=== PATIENT | female | born 1980 | race Caucasian/White ===

== ENCOUNTER 2016-10-21 12:55 | Emergency (ER) | payer OTHER ==
[~2016-10-21] VITALS: Ht 175.3 cm; Wt 140.0 kg
[~2016-10-21 12:55] MED LIST: ANTIVERT25 MG PO; ATARAX,VISTARIL50 MG PO; ATIVAN0.5 M1 PO; AZITHROMYCIN500 M1 PO; BACTRIM,SEPT1 TABLET PO; BENADRYL25 MG PO; BENTYL20 MG PO; CIPRO500 MG PO; CLINDAMYCIN HC150 MG PO; COLACE100 MG PO; DEPAKOTE ER (E500 MG PO; DEPAKOTE ER500 MG PO; DEPAKOTE500 MG PO; DIAMOX250 MG PO; DILAUDID2 MG PO; FIORICET,ESG1 TABLET PO; FLAGYL500 MG PO; FLEXERIL10 MG PO; FLOMAX0.4 MG PO; GEODON60 MG PO; HYDROCODON-ACE1 EAC7 PO; IMITREX100 MG PO; LEVAQUIN500 MG PO; LEXAPRO20 MG PO; LITHIUM CARBON300 MG PO; LORAZEPAM0.5 MG PO; MOBIC7.5 MG PO; MORPHINE SULFAT15 M1 PO; NIX 5% CREAM60 GM TP; NORCO 5/3251 TABLET PO; OMEPRAZOLE20 MG PO; OXYBUTYNIN CHLOR5 MG PO; PERCOCET 5/31 TABLET PO; PHENERGAN25 MG PR; PREDNISONE20 MG PO; PRIMIDONE50 MG PO; PYRIDIUM200 MG PO; RAPAFLO8 MG PO; REGLAN10 MG PO; SAVELLA50 MG PO; TAMSULOSIN HCL0.4 MG PO; THORAZINE50 MG PO; TOPAMAX25 MG PO; TORADOL10 MG PO; VALIUM5 MG PO; ZOFRAN ODT4 MG PO; ZOFRAN ODT8 MG PO; ZOMIG5 MG PO; [UNRECOGNIZED DRUG - REMARK]; [UNRECOGNIZED DRUG - REMARK]
[2016-10-21 13:39] LABS: ADD MIUA? YES; BILIRUBIN NEGATIVE; BLOOD NEGATIVE; COLOR YELLOW ((YELLOW)); GLUCOSE (STRIP) NEGATIVE; KETONES NEGATIVE; LEUKOCYTES NEGATIVE; NITRITE NEGATIVE; PH, URINE 6.5 (5-8); PROTEIN (STRIP) 30; SPECIFIC GRAVITY 1.028 (1.000-1.030)
[2016-10-21 14:02] LABS: EPITHELIAL CELLS 1+; RED BLOOD CELLS RARE /HPF (0-5); WHITE BLOOD CELLS 0-5 /HPF (0-5)
[2016-10-21 14:03] LABS: BACTERIA 1+; CASTS NONE SEEN /LPF; CRYSTALS NONE SEEN; MUCUS TRACE; UCUL ADDED? NO
[2016-10-21] MEDS ORDERED: DILAUDID4 MG PO (15:37)
[2016-10-21 16:15] LABS: HEMATOCRIT 41.9 % (36.0-46.0); MCH 28.7 PG (29.0-34.0); MCHC 33.7 G/DL (30.0-36.0); MCV 85.3 FL (83-99); MEAN PLAT.VOLUME 10.2 uM^3 (9.5-12.4); PLATELET COUNT 287 K/uL (156-360); RBC DIS.WIDTH-CV 14.7 % (11.8-14.6); RBC DIS.WIDTH-SD 44.3 % (39-53); RED BLOOD COUNT 4.91 M/uL (3.80-5.20); WHITE BLOOD COUNT 11.3 K/uL (4.1-10.2)
[2016-10-21 16:24] LABS: CHLORIDE 106 mEq/L (99-109); SODIUM 137 mEq/L (136-147)
[2016-10-21 16:26] LABS: GLUCOSE 100 mg/dL (70-99)
[2016-10-21 16:27] LABS: ANION GAP 11 MEQ/L (2-14)
[2016-10-21 16:28] LABS: TOTAL BILIRUBIN 0.2 mg/dL (0.0-1.0)
[2016-10-21 16:29] LABS: ALKALINE PHOSPHATASE 72 IU/L (3-129)
[2016-10-21 16:30] LABS: GFR ESTIMATE (CALCULATED) > 59 mL/min/
[2016-10-21 16:31] LABS: UREA NITROGEN (BUN) 12 mg/dL (9-23)
[2016-10-21 16:40] LABS: QUANTITATIVE HCG < 4.0 MIU/ML
[2016-10-21] MEDS ORDERED: ZOFRAN ODT4 MG PO (18:12)
[2016-10-21 18:30] VITALS: BP 140/86
== END 2016-10-21 18:32 | disposition home or self-care (01) ==
LOC: EME 12:55
DX: R11.2 Nausea with vomiting, unspecified (principal); N20.0 Calculus of kidney; R10.9 Unspecified abdominal pain; E66.01 Morbid (severe) obesity due to excess calories; F11.90 Opioid use, unspecified, uncomplicated; Z88.6 Allergy status to analgesic agent; F17.200 Nicotine dependence, unspecified, uncomplicated; Z90.49 Acquired absence of other specified parts of digestive tract
CPT/HCPCS: 74176; 80053; 81003; 84702; 85027; 99281; 99283; J2550; J3010

== ENCOUNTER 2016-10-23 16:42 | Emergency (ER) | payer OTHER ==
[~2016-10-23] VITALS: Ht 175.3 cm; Wt 139.9 kg
[~2016-10-23 16:42] MED LIST changes: +DILAUDID4 MG PO
[2016-10-23 18:33] LABS: HEMATOCRIT 43.5 % (36.0-46.0); MCH 28.8 PG (29.0-34.0); MCHC 33.6 G/DL (30.0-36.0); MCV 85.8 FL (83-99); PLATELET COUNT 285 K/uL (156-360); RBC DIS.WIDTH-CV 14.9 % (11.8-14.6); RBC DIS.WIDTH-SD 46.1 % (39-53); RED BLOOD COUNT 5.07 M/uL (3.80-5.20)
[2016-10-23 18:34] LABS: WHITE BLOOD COUNT 14.8 K/uL (4.1-10.2)
[2016-10-23 18:36] LABS: CHLORIDE 107 mEq/L (99-109); SODIUM 137 mEq/L (136-147)
[2016-10-23 18:38] LABS: GLUCOSE 102 mg/dL (70-99)
[2016-10-23 18:40] LABS: ANION GAP 9 MEQ/L (2-14)
[2016-10-23 18:41] LABS: TOTAL BILIRUBIN 0.3 mg/dL (0.0-1.0)
[2016-10-23 18:42] LABS: ALKALINE PHOSPHATASE 73 IU/L (3-129); GFR ESTIMATE (CALCULATED) > 59 mL/min/
[2016-10-23 18:43] LABS: UREA NITROGEN (BUN) 11 mg/dL (9-23)
[2016-10-23 19:37] LABS: ADD MIUA? YES; BILIRUBIN NEGATIVE; BLOOD LARGE; COLOR YELLOW ((YELLOW)); GLUCOSE (STRIP) NEGATIVE; KETONES NEGATIVE; LEUKOCYTES NEGATIVE; NITRITE NEGATIVE; PROTEIN (STRIP) 30; UROBILINOGEN 0.2 MG/DL (0.2-1.0)
[2016-10-23 19:46] LABS: BACTERIA NONE SEEN; CASTS NONE SEEN /LPF; CRYSTALS NONE SEEN; EPITHELIAL CELLS 1+; MUCUS NONE SEEN; PATHOLOGICAL CAST NONE SEEN; RED BLOOD CELLS 0-5 /HPF (0-5); SMALL ROUND CELL NONE SEEN; UCUL ADDED? NO; WHITE BLOOD CELLS 0-5 /HPF (0-5); YEAST-LIKE CELL NONE SEEN
[2016-10-23 20:27] VITALS: BP 126/78
== END 2016-10-23 20:35 | disposition home or self-care (01) ==
LOC: EME 16:42 → RME 16:42
PROVIDERS: Nurse Practitioner Family
DX: N20.0 Calculus of kidney (principal); J45.909 Unspecified asthma, uncomplicated; G89.29 Other chronic pain; M79.7 Fibromyalgia; Z87.442 Personal history of urinary calculi; F17.200 Nicotine dependence, unspecified, uncomplicated
CPT/HCPCS: 74000; 74177; 80053; 81003; 85027; 99281; 99285; J3010

== ENCOUNTER 2016-10-30 07:58 | Emergency (ER) | payer OTHER ==
[~2016-10-30] VITALS: Ht 175.3 cm; Wt 139.2 kg
[2016-10-30 08:28] LABS: EOSINOPHIL (%) 0.9 % (0-5); EOSINOPHIL COUNT 0.1 K/uL (0-0.3); IMMATURE GRANULOCYTE (%) 0.3 % (0.0-0.7); IMMATURE GRANULOCYTE COUNT 0.3 K/uL; LYMPHOCYTE COUNT 2.7 K/uL (1.0-2.8); MCHC 33.6 G/DL (30.0-36.0); MCV 86.4 FL (83-99); MEAN PLAT.VOLUME 9.8 uM^3 (9.5-12.4); MONOCYTE (%) 9.9 % (3-12); MONOCYTE COUNT 1.1 K/uL (0-0.8); NEUTROPHIL (%) 63.8 % (45-76); PLATELET COUNT 263 K/uL (156-360); RBC DIS.WIDTH-CV 14.8 % (11.8-14.6); RBC DIS.WIDTH-SD 45.8 % (39-53); RED BLOOD COUNT 4.86 M/uL (3.80-5.20); WHITE BLOOD COUNT 10.9 K/uL (4.1-10.2)
[2016-10-30 08:50] LABS: ADD MIUA? YES; BILIRUBIN NEGATIVE; BLOOD NEGATIVE; COLOR YELLOW ((YELLOW)); GLUCOSE (STRIP) NEGATIVE; KETONES NEGATIVE; LEUKOCYTES NEGATIVE; NITRITE NEGATIVE; PH, URINE 5.5 (5-8); PROTEIN (STRIP) 30; SPECIFIC GRAVITY 1.031 (1.000-1.030); UROBILINOGEN 0.2 MG/DL (0.2-1.0)
[2016-10-30 08:55] LABS: CHLORIDE 102 mEq/L (99-109); POTASSIUM 3.8 mEq/L (3.7-5.4); SODIUM 135 mEq/L (136-147)
[2016-10-30 08:57] LABS: GLUCOSE 112 mg/dL (70-99)
[2016-10-30 08:58] LABS: ANION GAP 13 MEQ/L (2-14)
[2016-10-30 09:00] LABS: ALKALINE PHOSPHATASE 66 IU/L (3-129)
[2016-10-30 09:01] LABS: GFR ESTIMATE (CALCULATED) > 59 mL/min/
[2016-10-30 09:02] LABS: TOTAL BILIRUBIN 0.5 mg/dL (0.0-1.0); UREA NITROGEN (BUN) 9 mg/dL (9-23)
[2016-10-30 09:04] LABS: LIPASE 41 U/L (1.0-51.0)
[2016-10-30 09:27] LABS: EPITHELIAL CELLS 1+; MUCUS 2+; RED BLOOD CELLS NONE SEEN /HPF (0-5); WHITE BLOOD CELLS RARE /HPF (0-5)
[2016-10-30 09:28] LABS: BACTERIA NONE SEEN; CASTS NONE SEEN /LPF
[2016-10-30 09:51] LABS: CRYSTALS NONE SEEN
[2016-10-30 10:30] VITALS: BP 107/49
[2016-10-30] MEDS ORDERED: ZOFRAN ODT4 MG PO (11:13)
[2016-10-30] MEDS ORDERED: BENTYL20 MG PO (11:13)
== END 2016-10-30 11:32 | disposition home or self-care (01) ==
LOC: EME 07:58
PROVIDERS: Emergency Medicine
DX: R10.9 Unspecified abdominal pain (principal); R11.10 Vomiting, unspecified; R19.7 Diarrhea, unspecified; J45.909 Unspecified asthma, uncomplicated; F17.200 Nicotine dependence, unspecified, uncomplicated; Z88.0 Allergy status to penicillin; Z88.6 Allergy status to analgesic agent
CPT/HCPCS: 80053; 81003; 83690; 85025; 87493; 99281; 99285; J1885; J2270; J2405; J2765; J7030

== ENCOUNTER 2016-12-17 13:55 | Emergency (ER) | payer OTHER ==
[~2016-12-17] VITALS: Ht 177.8 cm; Wt 138.1 kg
[2016-12-17 14:26] LABS: HEMATOCRIT 45.9 % (36.0-46.0); MCH 28.3 PG (29.0-34.0); MCHC 32.5 G/DL (30.0-36.0); MCV 87.3 FL (83-99); MEAN PLAT.VOLUME 9.7 uM^3 (9.5-12.4); PLATELET COUNT 318 K/uL (156-360); RBC DIS.WIDTH-CV 13.5 % (11.8-14.6); RBC DIS.WIDTH-SD 43.5 % (39-53); RED BLOOD COUNT 5.26 M/uL (3.80-5.20); WHITE BLOOD COUNT 11.5 K/uL (4.1-10.2)
[2016-12-17 14:40] LABS: CHLORIDE 105 mEq/L (99-109); POTASSIUM 4.3 mEq/L (3.7-5.4); SODIUM 139 mEq/L (136-147)
[2016-12-17 14:42] LABS: GLUCOSE 90 mg/dL (70-99)
[2016-12-17 14:43] LABS: ANION GAP 11 MEQ/L (2-14)
[2016-12-17 14:46] LABS: GFR ESTIMATE (CALCULATED) > 59 mL/min/
[2016-12-17 14:47] LABS: TROP-I INTERPRETATION NEGATIVE; TROPONIN-I < 0.01 ng/mL (0.0-0.30); UREA NITROGEN (BUN) 11 mg/dL (9-23)
[2016-12-17 16:49] LABS: TROP-I INTERPRETATION NEGATIVE; TROPONIN-I < 0.01 ng/mL (0.0-0.30)
[2016-12-17] MEDS ORDERED: VENTOLIN HFA18 GM IH (17:09)
[2016-12-17] MEDS ORDERED: ZITHROMAX Z-PA250 MG PO (17:09)
[2016-12-17] MEDS ORDERED: PERCOCET 5/31 TABLET PO (17:09)
[2016-12-17 17:52] VITALS: BP 128/71
== END 2016-12-17 17:52 | disposition home or self-care (01) ==
LOC: EME 13:55
PROVIDERS: Emergency Medicine
DX: R07.9 Chest pain, unspecified (principal); J40 Bronchitis, not specified as acute or chronic; J45.909 Unspecified asthma, uncomplicated; G89.29 Other chronic pain; M79.7 Fibromyalgia; Z87.442 Personal history of urinary calculi; Z98.2 Presence of cerebrospinal fluid drainage device; F17.200 Nicotine dependence, unspecified, uncomplicated
CPT/HCPCS: 71275; 80048; 83880; 84484; 85027; 93005; 99281; 99285; J1885

== ENCOUNTER 2017-01-27 09:59 | Emergency (ER) | payer OTHER ==
[~2017-01-27] VITALS: Ht 177.8 cm; Wt 141.8 kg
[~2017-01-27 09:59] MED LIST changes: +VENTOLIN HFA18 GM IH; +ZITHROMAX Z-PA250 MG PO
[2017-01-27 10:53] LABS: HEMATOCRIT 45.6 % (36.0-46.0); MCH 28.6 PG (29.0-34.0); MCHC 32.5 G/DL (30.0-36.0); MEAN PLAT.VOLUME 9.7 uM^3 (9.5-12.4); PLATELET COUNT 301 K/uL (156-360); RBC DIS.WIDTH-CV 13.4 % (11.8-14.6); RBC DIS.WIDTH-SD 43.5 % (39-53); RED BLOOD COUNT 5.18 M/uL (3.80-5.20); WHITE BLOOD COUNT 11.5 K/uL (4.1-10.2)
[2017-01-27 11:08] LABS: CHLORIDE 106 mEq/L (99-109); POTASSIUM 3.7 mEq/L (3.7-5.4); SODIUM 139 mEq/L (136-147)
[2017-01-27 11:10] LABS: GLUCOSE 136 mg/dL (70-99)
[2017-01-27 11:11] LABS: ANION GAP 12 MEQ/L (2-14)
[2017-01-27 11:14] LABS: GFR ESTIMATE (CALCULATED) > 59 mL/min/; UREA NITROGEN (BUN) 12 mg/dL (9-23)
[2017-01-27 11:19] LABS: TROP-I INTERPRETATION NEGATIVE; TROPONIN-I < 0.01 ng/mL (0.0-0.30)
[2017-01-27 13:14] LABS: TROP-I INTERPRETATION NEGATIVE; TROPONIN-I < 0.01 ng/mL (0.0-0.30)
[2017-01-27 13:47] LABS: D-DIMER ELISA 0.48 mg/L FEU (< 0.57)
[2017-01-27 14:44] VITALS: BP 119/71
== END 2017-01-27 14:45 | disposition home or self-care (01) ==
LOC: EME 09:59
PROVIDERS: Physician Assistant Medical
DX: G43.909 Migraine, unspecified, not intractable, without status migrainosus (principal); R07.9 Chest pain, unspecified; R42 Dizziness and giddiness; R11.2 Nausea with vomiting, unspecified; R19.7 Diarrhea, unspecified; R06.00 Dyspnea, unspecified; M79.604 Pain in right leg; M79.605 Pain in left leg; G89.29 Other chronic pain; R10.9 Unspecified abdominal pain; Z98.2 Presence of cerebrospinal fluid drainage device; Z87.442 Personal history of urinary calculi; Z90.49 Acquired absence of other specified parts of digestive tract; F17.200 Nicotine dependence, unspecified, uncomplicated
CPT/HCPCS: 71020; 74000; 80048; 84484; 85027; 85379; 93005; 99281; 99285; J1200; J1885; J2765; J7030

== ENCOUNTER 2017-02-20 18:27 | Emergency (ER) | payer OTHER ==
[~2017-02-20] VITALS: Ht 175.3 cm; Wt 143.6 kg
[2017-02-20 19:27] LABS: ADD MIUA? YES; BILIRUBIN NEGATIVE; BLOOD NEGATIVE; COLOR YELLOW ((YELLOW)); GLUCOSE (STRIP) NEGATIVE; KETONES NEGATIVE; LEUKOCYTES NEGATIVE; NITRITE NEGATIVE; PROTEIN (STRIP) 100; SPECIFIC GRAVITY 1.033 (1.000-1.030)
[2017-02-20 19:35] LABS: BACTERIA NONE SEEN /HPF; EPITHELIAL CELLS RARE /HPF; MUCUS 1+ /LPF; RED BLOOD CELLS NONE SEEN /HPF (0-5); UCUL ADDED? NO; WHITE BLOOD CELLS NONE SEEN /HPF (0-5)
[2017-02-20 20:01] LABS: HEMATOCRIT 45.7 % (36.0-46.0); MCH 28.4 PG (29.0-34.0); MCHC 33.3 G/DL (30.0-36.0); MCV 85.4 FL (83-99); MEAN PLAT.VOLUME 9.8 uM^3 (9.5-12.4); PLATELET COUNT 300 K/uL (156-360); RBC DIS.WIDTH-CV 13.2 % (11.8-14.6); RBC DIS.WIDTH-SD 41.3 % (39-53); RED BLOOD COUNT 5.35 M/uL (3.80-5.20); WHITE BLOOD COUNT 12.5 K/uL (4.1-10.2)
[2017-02-20 20:16] LABS: CHLORIDE 105 mEq/L (99-109); POTASSIUM 3.7 mEq/L (3.7-5.4); SODIUM 137 mEq/L (136-147)
[2017-02-20 20:18] LABS: GLUCOSE 105 mg/dL (70-99)
[2017-02-20 20:19] LABS: ANION GAP 10 MEQ/L (2-14)
[2017-02-20 20:20] LABS: TOTAL BILIRUBIN 0.5 mg/dL (0.0-1.0)
[2017-02-20 20:21] LABS: ALKALINE PHOSPHATASE 83 IU/L (3-129)
[2017-02-20 20:22] LABS: GFR ESTIMATE (CALCULATED) > 59 mL/min/
[2017-02-20 20:23] LABS: UREA NITROGEN (BUN) 10 mg/dL (9-23)
[2017-02-20 20:30] LABS: QUANTITATIVE HCG < 4.0 MIU/ML
[2017-02-20 21:47] LABS: LIPASE 26 U/L (1.0-51.0)
[2017-02-20] MEDS ORDERED: REGLAN10 MG PO (22:18)
[2017-02-20] MEDS ORDERED: BENTYL20 MG PO (22:18)
[2017-02-20 22:31] VITALS: BP 141/77
== END 2017-02-20 22:43 | disposition home or self-care (01) ==
LOC: EXP 18:27 → EME 18:27 → EXP 22:43
DX: R10.11 Right upper quadrant pain (principal); G89.29 Other chronic pain; J45.909 Unspecified asthma, uncomplicated; F31.9 Bipolar disorder, unspecified; M79.7 Fibromyalgia; G43.909 Migraine, unspecified, not intractable, without status migrainosus
CPT/HCPCS: 74176; 80053; 81003; 83690; 84702; 85027; 99281; 99284; J2270; J2405; J3010; J7030

== ENCOUNTER 2017-03-19 08:54 | Emergency (ER) | payer OTHER ==
[~2017-03-19] VITALS: Ht 172.7 cm; Wt 146.1 kg
[2017-03-19 10:07] LABS: BASOPHIL COUNT 0.1 K/uL (0-0.1); EOSINOPHIL (%) 2.1 % (0-5); EOSINOPHIL COUNT 0.2 K/uL (0-0.3); HEMATOCRIT 42.8 % (36.0-46.0); IMMATURE GRANULOCYTE (%) 0.7 % (0.0-0.7); IMMATURE GRANULOCYTE COUNT 0.1 K/uL; LYMPHOCYTE COUNT 3.1 K/uL (1.0-2.8); MCH 28.5 PG (29.0-34.0); MCHC 32.7 G/DL (30.0-36.0); MCV 87.2 FL (83-99); MEAN PLAT.VOLUME 9.8 uM^3 (9.5-12.4); NEUTROPHIL (%) 53.2 % (45-76); PLATELET COUNT 297 K/uL (156-360); RBC DIS.WIDTH-CV 13.8 % (11.8-14.6); RBC DIS.WIDTH-SD 44.1 % (39-53); RED BLOOD COUNT 4.91 M/uL (3.80-5.20); WHITE BLOOD COUNT 9.5 K/uL (4.1-10.2)
[2017-03-19 10:13] LABS: ADD MIUA? YES; BILIRUBIN NEGATIVE; BLOOD SMALL; COLOR YELLOW ((YELLOW)); GLUCOSE (STRIP) NEGATIVE; KETONES NEGATIVE; LEUKOCYTES NEGATIVE; NITRITE NEGATIVE; PROTEIN (STRIP) 30; SPECIFIC GRAVITY 1.017 (1.000-1.030); UROBILINOGEN 0.2 MG/DL (0.2-1.0)
[2017-03-19 10:18] LABS: BACTERIA NONE SEEN /HPF; EPITHELIAL CELLS RARE /HPF; MUCUS NONE SEEN /LPF; RED BLOOD CELLS 0-5 /HPF (0-5); WHITE BLOOD CELLS 0-5 /HPF (0-5)
[2017-03-19 10:20] LABS: CHLORIDE 103 mEq/L (99-109); POTASSIUM 3.6 mEq/L (3.7-5.4); SODIUM 134 mEq/L (136-147)
[2017-03-19 10:22] LABS: GLUCOSE 89 mg/dL (70-99)
[2017-03-19 10:23] LABS: ANION GAP 7 MEQ/L (2-14)
[2017-03-19 10:24] LABS: TOTAL BILIRUBIN 0.3 mg/dL (0.0-1.0)
[2017-03-19 10:25] LABS: ALKALINE PHOSPHATASE 63 IU/L (3-129)
[2017-03-19 10:26] LABS: GFR ESTIMATE (CALCULATED) > 59 mL/min/
[2017-03-19 10:27] LABS: UREA NITROGEN (BUN) 12 mg/dL (9-23)
[2017-03-19 10:29] LABS: LIPASE 32 U/L (1.0-51.0)
[2017-03-19] MEDS ORDERED: CLEOCIN300 MG PO (12:36)
[2017-03-19 12:49] VITALS: BP 104/59
== END 2017-03-19 12:50 | disposition home or self-care (01) ==
LOC: EME 08:54
PROVIDERS: Emergency Medicine
DX: R10.9 Unspecified abdominal pain (principal); M79.671 Pain in right foot; L03.311 Cellulitis of abdominal wall; Z87.442 Personal history of urinary calculi; Z90.49 Acquired absence of other specified parts of digestive tract; J45.909 Unspecified asthma, uncomplicated; F31.9 Bipolar disorder, unspecified; M79.7 Fibromyalgia; F17.200 Nicotine dependence, unspecified, uncomplicated; Z88.0 Allergy status to penicillin
CPT/HCPCS: 74176; 80053; 81003; 83690; 85025; 93971; 99281; 99285; J2270; J2405; J7030

== ENCOUNTER 2017-04-07 10:04 | Emergency (ER) | payer OTHER ==
[~2017-04-07] VITALS: Ht 177.8 cm; Wt 145.4 kg
[~2017-04-07 10:04] MED LIST changes: +CLEOCIN300 MG PO
[2017-04-07 11:30] LABS: HEMATOCRIT 42.7 % (36.0-46.0); MCH 29.2 PG (29.0-34.0); MCHC 33.5 G/DL (30.0-36.0); MCV 87.3 FL (83-99); MEAN PLAT.VOLUME 10.1 uM^3 (9.5-12.4); PLATELET COUNT 222 K/uL (156-360); RBC DIS.WIDTH-CV 14.1 % (11.8-14.6); RBC DIS.WIDTH-SD 45.2 % (39-53); RED BLOOD COUNT 4.89 M/uL (3.80-5.20); WHITE BLOOD COUNT 10.8 K/uL (4.1-10.2)
[2017-04-07 12:03] LABS: ANION GAP 11 MEQ/L (2-14); CHLORIDE 106 MEQ/L (99-109); POTASSIUM 3.4 MEQ/L (3.7-5.4); SAMPLE HEMOLYSIS CHECK 0; SAMPLE ICTERIC CHECK 0; SAMPLE LIPEMIA CHECK 0; SODIUM 140 MEQ/L (136-147); TOTAL BILIRUBIN 0.3 MG/DL (0.0-1.0)
[2017-04-07 12:09] LABS: ALKALINE PHOSPHATASE 63 IU/L (3-129); GFR ESTIMATE (CALCULATED) > 59 mL/min/; GLUCOSE 90 mg/dL (70-99); UREA NITROGEN (BUN) 9 mg/dL (9-23)
[2017-04-07 12:14] LABS: QUANTITATIVE HCG < 4.0 MIU/ML
[2017-04-07] MEDS ORDERED: KEPPRA500 MG PO (13:07)
[2017-04-07 13:20] VITALS: BP 126/72
[2017-04-09 01:51] LABS: Primidone <2.5 mg/L (5.0-12.0)
== END 2017-04-07 13:21 | disposition home or self-care (01) ==
LOC: EME 10:04
PROVIDERS: Emergency Medicine
DX: G40.209 Localization-related (focal) (partial) symptomatic epilepsy and epileptic syndromes with complex partial seizures, not intractable, without status epilepticus (principal); R42 Dizziness and giddiness; R51 Headache; Z98.2 Presence of cerebrospinal fluid drainage device; Z79.891 Long term (current) use of opiate analgesic; F17.200 Nicotine dependence, unspecified, uncomplicated
CPT/HCPCS: 70450; 80053; 80188 90; 84702; 85027; 99281; 99284

== ENCOUNTER 2017-04-19 06:47 | Emergency (ER) | payer OTHER ==
[~2017-04-19] VITALS: Ht 175.3 cm; Wt 146.0 kg
[~2017-04-19 06:47] MED LIST changes: +KEPPRA500 MG PO
[2017-04-19] MEDS ORDERED: PRIMIDONE50 MG PO (07:11)
[2017-04-19 08:11] LABS: HEMATOCRIT 43.2 % (36.0-46.0); MCH 29.1 PG (29.0-34.0); MCHC 32.9 G/DL (30.0-36.0); MCV 88.5 FL (83-99); MEAN PLAT.VOLUME 9.8 uM^3 (9.5-12.4); PLATELET COUNT 258 K/uL (156-360); RBC DIS.WIDTH-CV 13.6 % (11.8-14.6); RBC DIS.WIDTH-SD 44.4 % (39-53); RED BLOOD COUNT 4.88 M/uL (3.80-5.20); WHITE BLOOD COUNT 11.3 K/uL (4.1-10.2)
[2017-04-19 08:53] LABS: ALKALINE PHOSPHATASE 72 IU/L (3-129); ANION GAP 11 MEQ/L (2-14); CHLORIDE 106 MEQ/L (99-109); GFR ESTIMATE (CALCULATED) > 59 mL/min/; GLUCOSE 103 mg/dL (70-99); POTASSIUM 4.1 MEQ/L (3.7-5.4); SAMPLE HEMOLYSIS CHECK 0; SAMPLE ICTERIC CHECK 0; SAMPLE LIPEMIA CHECK 0; SODIUM 140 MEQ/L (136-147); TOTAL BILIRUBIN 0.4 MG/DL (0.0-1.0); UREA NITROGEN (BUN) 10 mg/dL (9-23)
[2017-04-19 09:41] LABS: ADD MIUA? YES; BILIRUBIN NEGATIVE; BLOOD NEGATIVE; COLOR YELLOW ((YELLOW)); GLUCOSE (STRIP) NEGATIVE; KETONES NEGATIVE; LEUKOCYTES NEGATIVE; NITRITE NEGATIVE; PROTEIN (STRIP) 100; UROBILINOGEN 0.2 MG/DL (0.2-1.0)
[2017-04-19 09:47] LABS: BACTERIA RARE /HPF; EPITHELIAL CELLS 1+ /HPF; MUCUS 3+ /LPF; UCUL ADDED? NO
[2017-04-19] MEDS ORDERED: REGLAN10 MG PO (12:07)
[2017-04-19] MEDS ORDERED: ZOFRAN ODT4 MG PO (12:07)
[2017-04-19 12:45] VITALS: BP 115/57
== END 2017-04-19 12:47 | disposition home or self-care (01) ==
LOC: EME 06:47
PROVIDERS: Nurse Practitioner Family
DX: N20.0 Calculus of kidney (principal); R10.11 Right upper quadrant pain; G89.29 Other chronic pain; J45.909 Unspecified asthma, uncomplicated; F32.9 Major depressive disorder, single episode, unspecified; M79.7 Fibromyalgia; F17.200 Nicotine dependence, unspecified, uncomplicated; F12.90 Cannabis use, unspecified, uncomplicated; Z90.49 Acquired absence of other specified parts of digestive tract; Z98.51 Tubal ligation status; Z88.0 Allergy status to penicillin
CPT/HCPCS: 74000; 74020; 74176; 80053; 81003; 85027; 99281; 99285; J1885; J2405; J2765; J7030

== ENCOUNTER 2017-05-19 21:06 | Emergency (ER) | payer OTHER ==
[~2017-05-19] VITALS: Ht 175.3 cm; Wt 136.9 kg
[2017-05-19 21:40] LABS: ADD MIUA? YES; BILIRUBIN NEGATIVE; BLOOD SMALL; COLOR AMBER ((YELLOW)); GLUCOSE (STRIP) NEGATIVE; KETONES NEGATIVE; LEUKOCYTES LARGE; NITRITE NEGATIVE; PROTEIN (STRIP) 100; SPECIFIC GRAVITY 1.025 (1.000-1.030); UROBILINOGEN 0.2 MG/DL (0.2-1.0)
[2017-05-19 21:45] LABS: HEMATOCRIT 43.8 % (36.0-46.0); MCH 29.3 PG (29.0-34.0); MCHC 33.6 G/DL (30.0-36.0); MCV 87.3 FL (83-99); MEAN PLAT.VOLUME 10.1 uM^3 (9.5-12.4); PLATELET COUNT 316 K/uL (156-360); RBC DIS.WIDTH-SD 44.7 % (39-53); RED BLOOD COUNT 5.02 M/uL (3.80-5.20)
[2017-05-19 21:56] LABS: CHLORIDE 108 mEq/L (99-109); POTASSIUM 3.5 mEq/L (3.7-5.4); SODIUM 139 mEq/L (136-147)
[2017-05-19 21:58] LABS: GLUCOSE 111 mg/dL (70-99)
[2017-05-19 22:00] LABS: ANION GAP 10 MEQ/L (2-14); TOTAL BILIRUBIN 0.3 mg/dL (0.0-1.0)
[2017-05-19 22:02] LABS: ALKALINE PHOSPHATASE 72 IU/L (3-129); GFR ESTIMATE (CALCULATED) > 59 mL/min/
[2017-05-19 22:03] LABS: UREA NITROGEN (BUN) 12 mg/dL (9-23)
[2017-05-19 22:07] LABS: BACTERIA 2+ /HPF; CASTS NONE SEEN /LPF; CRYSTALS NONE SEEN; EPITHELIAL CELLS 2+ /HPF; MUCUS NONE SEEN /LPF; UCUL ADDED? YES; WHITE BLOOD CELLS TNTC /HPF (0-5)
[2017-05-19 22:10] LABS: QUANTITATIVE HCG < 4.0 MIU/ML
[2017-05-19 22:47] VITALS: BP 126/76
== END 2017-05-19 22:47 | disposition left against medical advice (07) ==
LOC: EME 21:06
PROVIDERS: Nurse Practitioner Family
DX: R10.11 Right upper quadrant pain (principal); R11.2 Nausea with vomiting, unspecified; R19.7 Diarrhea, unspecified; R20.0 Anesthesia of skin; R42 Dizziness and giddiness; Z98.2 Presence of cerebrospinal fluid drainage device; Z87.442 Personal history of urinary calculi; F17.200 Nicotine dependence, unspecified, uncomplicated
CPT/HCPCS: 80053; 81003; 84702; 85027; 87086; 99281; 99284

== ENCOUNTER 2017-06-08 21:15 | Emergency (ER) | payer OTHER ==
[~2017-06-08] VITALS: Ht 175.3 cm; Wt 135.7 kg
[2017-06-08 21:19] VITALS: BP 140/91
[2017-06-08] MEDS ORDERED: PERCOCET 5/31 TABLET PO (23:12)
[2017-06-08] MEDS ORDERED: NAPROSYN500 MG PO (23:12)
== END 2017-06-08 23:43 | disposition home or self-care (01) ==
LOC: EME 21:15
DX: S90.32XA Contusion of left foot, initial encounter (principal); W20.8XXA Other cause of strike by thrown, projected or falling object, initial encounter; F17.200 Nicotine dependence, unspecified, uncomplicated
CPT/HCPCS: 73630; 99281; 99283

== ENCOUNTER 2017-07-12 20:19 | Emergency (ER) | payer SELFPAY ==
[~2017-07-12] VITALS: Ht 175.3 cm; Wt 136.8 kg
[~2017-07-12 20:19] MED LIST changes: +NAPROSYN500 MG PO
[2017-07-12 21:01] LABS: MCH 30.2 PG (29.0-34.0); MCHC 33.8 G/DL (30.0-36.0); MCV 89.4 FL (83-99); PLATELET COUNT 257 K/uL (156-360); RBC DIS.WIDTH-CV 13.5 % (11.8-14.6); RBC DIS.WIDTH-SD 44.2 % (39-53); WHITE BLOOD COUNT 10.6 K/uL (4.1-10.2)
[2017-07-12 21:15] LABS: CHLORIDE 105 mEq/L (99-109); POTASSIUM 3.8 mEq/L (3.7-5.4); SODIUM 139 mEq/L (136-147)
[2017-07-12 21:17] LABS: GLUCOSE 129 mg/dL (70-99)
[2017-07-12 21:18] LABS: ANION GAP 11 MEQ/L (2-14)
[2017-07-12 21:19] LABS: TOTAL BILIRUBIN 0.4 mg/dL (0.0-1.0)
[2017-07-12 21:20] LABS: ALKALINE PHOSPHATASE 79 IU/L (3-129)
[2017-07-12 21:21] LABS: GFR ESTIMATE (CALCULATED) > 59 mL/min/
[2017-07-12 21:22] LABS: UREA NITROGEN (BUN) 8 mg/dL (9-23)
[2017-07-12 21:30] LABS: QUANTITATIVE HCG < 4.0 MIU/ML
[2017-07-12 21:39] LABS: ADD MIUA? YES; BILIRUBIN NEGATIVE; BLOOD NEGATIVE; COLOR YELLOW ((YELLOW)); GLUCOSE (STRIP) NEGATIVE; KETONES NEGATIVE; LEUKOCYTES NEGATIVE; NITRITE NEGATIVE; PROTEIN (STRIP) 30; SPECIFIC GRAVITY 1.031 (1.000-1.030)
[2017-07-12 22:02] LABS: BACTERIA 1+ /HPF; CASTS PRESENT /LPF; CRYSTALS PRESENT; EPITHELIAL CELLS 1+ /HPF; HYALINE CASTS RARE /LPF; MUCUS RARE /LPF; RED BLOOD CELLS 0-5 /HPF (0-5); UCUL ADDED? NO; WHITE BLOOD CELLS 0-5 /HPF (0-5)
[2017-07-12 22:03] LABS: AMORPHOUS URATES CRYSTALS 2+; FINE GRANULAR CASTS RARE /LPF
[2017-07-12] MEDS ORDERED: ZOFRAN ODT4 MG PO (23:28)
[2017-07-12] MEDS ORDERED: BENTYL10 MG PO (23:28)
[2017-07-12] MEDS ORDERED: PERCOCET 5/31 TABLET PO (23:54)
[2017-07-13 00:07] VITALS: BP 152/78
== END 2017-07-13 00:08 | disposition home or self-care (01) ==
LOC: EME 20:19
DX: R10.31 Right lower quadrant pain (principal); R10.11 Right upper quadrant pain; G89.29 Other chronic pain; J45.909 Unspecified asthma, uncomplicated; M79.7 Fibromyalgia; F32.9 Major depressive disorder, single episode, unspecified; Z87.442 Personal history of urinary calculi; Z98.2 Presence of cerebrospinal fluid drainage device; Z90.49 Acquired absence of other specified parts of digestive tract; Z98.51 Tubal ligation status; F17.200 Nicotine dependence, unspecified, uncomplicated; Z88.0 Allergy status to penicillin; Z88.8 Allergy status to other drugs, medicaments and biological substances
CPT/HCPCS: 74177; 80053; 81003; 84702; 85027; 99281; 99284; J2270; J2405; J3010; J7030

== ENCOUNTER 2017-09-22 20:10 | Emergency (ER) | payer OTHER ==
[~2017-09-22] VITALS: Ht 175.3 cm; Wt 132.2 kg
[~2017-09-22 20:10] MED LIST changes: +BENTYL10 MG PO
[2017-09-22 20:43] LABS: HEMATOCRIT 47.6 % (36.0-46.0); MCH 29.9 PG (29.0-34.0); MCHC 33.4 G/DL (30.0-36.0); MCV 89.5 FL (83-99); MEAN PLAT.VOLUME 10.2 uM^3 (9.5-12.4); PLATELET COUNT 302 K/uL (156-360); RBC DIS.WIDTH-CV 12.3 % (11.8-14.6); RBC DIS.WIDTH-SD 40.5 % (39-53); RED BLOOD COUNT 5.32 M/uL (3.80-5.20); WHITE BLOOD COUNT 11.4 K/uL (4.1-10.2)
[2017-09-22 20:46] LABS: ADD MIUA? YES; BILIRUBIN NEGATIVE; BLOOD NEGATIVE; COLOR YELLOW ((YELLOW)); GLUCOSE (STRIP) NEGATIVE; KETONES NEGATIVE; LEUKOCYTES NEGATIVE; NITRITE NEGATIVE; PROTEIN (STRIP) 30
[2017-09-22 20:51] LABS: BACTERIA RARE /HPF; EPITHELIAL CELLS RARE /HPF; MUCUS TRACE /LPF; RED BLOOD CELLS 0-5 /HPF (0-5); UCUL ADDED? NO; WHITE BLOOD CELLS 0-5 /HPF (0-5)
[2017-09-22 20:52] LABS: CHLORIDE 105 mEq/L (99-109); POTASSIUM 3.8 mEq/L (3.7-5.4); SODIUM 139 mEq/L (136-147)
[2017-09-22 20:54] LABS: GLUCOSE 132 mg/dL (70-99)
[2017-09-22 20:55] LABS: ANION GAP 10 MEQ/L (2-14)
[2017-09-22 20:58] LABS: GFR ESTIMATE (CALCULATED) > 59 mL/min/; UREA NITROGEN (BUN) 8 mg/dL (9-23)
[2017-09-22 21:30] LABS: MAGNESIUM 2.2 mg/dL (1.3-2.7)
[2017-09-22 22:53] VITALS: BP 142/75
[2017-09-23] MEDS ORDERED: KEPPRA500 MG PO (23:55)
== END 2017-09-22 22:54 | disposition home or self-care (01) ==
LOC: EME 20:10
DX: R11.2 Nausea with vomiting, unspecified (principal); R19.7 Diarrhea, unspecified; R51 Headache; G40.909 Epilepsy, unspecified, not intractable, without status epilepticus; R42 Dizziness and giddiness; H92.01 Otalgia, right ear; R53.83 Other fatigue; Z98.2 Presence of cerebrospinal fluid drainage device; Z90.49 Acquired absence of other specified parts of digestive tract; Z87.442 Personal history of urinary calculi; F17.200 Nicotine dependence, unspecified, uncomplicated
CPT/HCPCS: 70450; 71010; 80048; 81003; 83735; 85027; 99281; 99285; J1953; J2405; J7030; J7050

== ENCOUNTER 2017-09-23 21:08 | Emergency (ER) | payer OTHER ==
[~2017-09-23] VITALS: Ht 175.3 cm; Wt 132.2 kg
[2017-09-23 22:49] LABS: HEMATOCRIT 45.5 % (36.0-46.0); MCH 29.5 PG (29.0-34.0); MCHC 33.2 G/DL (30.0-36.0); MCV 88.9 FL (83-99); MEAN PLAT.VOLUME 10.3 uM^3 (9.5-12.4); PLATELET COUNT 310 K/uL (156-360); RBC DIS.WIDTH-CV 12.2 % (11.8-14.6); RBC DIS.WIDTH-SD 40.5 % (39-53); RED BLOOD COUNT 5.12 M/uL (3.80-5.20); WHITE BLOOD COUNT 12.7 K/uL (4.1-10.2)
[2017-09-23 22:57] LABS: CHLORIDE 106 mEq/L (99-109); POTASSIUM 3.9 mEq/L (3.7-5.4); SODIUM 138 mEq/L (136-147)
[2017-09-23 23:00] LABS: ANION GAP 9 MEQ/L (2-14); GLUCOSE 92 mg/dL (70-99)
[2017-09-23 23:01] LABS: TOTAL BILIRUBIN 0.5 mg/dL (0.0-1.0)
[2017-09-23 23:02] LABS: ALKALINE PHOSPHATASE 68 IU/L (3-129)
[2017-09-23 23:03] LABS: GFR ESTIMATE (CALCULATED) > 59 mL/min/
[2017-09-23 23:04] LABS: UREA NITROGEN (BUN) 10 mg/dL (9-23)
[2017-09-23 23:04] LABS: ADD MIUA? YES; BILIRUBIN NEGATIVE; BLOOD SMALL; COLOR YELLOW ((YELLOW)); GLUCOSE (STRIP) NEGATIVE; KETONES NEGATIVE; LEUKOCYTES NEGATIVE; NITRITE NEGATIVE; PROTEIN (STRIP) 30; UROBILINOGEN 0.2 MG/DL (0.2-1.0)
[2017-09-23 23:08] LABS: BACTERIA NONE SEEN /HPF; EPITHELIAL CELLS RARE /HPF; MUCUS TRACE /LPF; RED BLOOD CELLS 0-5 /HPF (0-5); WHITE BLOOD CELLS 0-5 /HPF (0-5)
[2017-09-23] MEDS ORDERED: KEPPRA500 MG PO (23:55)
[2017-09-24 00:03] VITALS: BP 113/61
== END 2017-09-24 00:05 | disposition home or self-care (01) ==
LOC: EME 21:08
PROVIDERS: Physician Assistant
DX: R56.9 Unspecified convulsions (principal); R10.9 Unspecified abdominal pain; F17.200 Nicotine dependence, unspecified, uncomplicated; Z88.5 Allergy status to narcotic agent; Z88.0 Allergy status to penicillin; Z88.8 Allergy status to other drugs, medicaments and biological substances; Z87.442 Personal history of urinary calculi; M79.7 Fibromyalgia; F32.9 Major depressive disorder, single episode, unspecified; J45.909 Unspecified asthma, uncomplicated
CPT/HCPCS: 80053; 81003; 85027; 99281; 99284

== ENCOUNTER 2017-09-28 06:45 | Emergency (ER) | payer OTHER ==
[~2017-09-28] VITALS: Ht 175.3 cm; Wt 133.8 kg
[2017-09-28 07:24] LABS: APPEARANCE SL.HAZY ((CLEAR)); BILIRUBIN NEGATIVE; BLOOD NEGATIVE; COLOR YELLOW ((YELLOW)); GLUCOSE (STRIP) NEGATIVE; KETONES NEGATIVE; LEUKOCYTES NEGATIVE; NITRITE NEGATIVE; PROTEIN (STRIP) 100; SPECIFIC GRAVITY 1.035 (1.000-1.030)
[2017-09-28 07:37] LABS: HEMATOCRIT 44.8 % (36.0-46.0); HEMOGLOBIN 15.1 G/DL (11.9-15.5); MCHC 33.7 G/DL (30.0-36.0); MCV 88.9 FL (83-99); PLATELET COUNT 251 K/uL (156-360); RBC DIS.WIDTH-CV 12.6 % (11.8-14.6); RBC DIS.WIDTH-SD 41.1 % (39-53); RED BLOOD COUNT 5.04 M/uL (3.80-5.20)
[2017-09-28 07:46] LABS: ALBUMIN 3.4 g/dL (3.2-4.8); CHLORIDE 104 mEq/L (99-109); POTASSIUM 4.6 mEq/L (3.7-5.4); SODIUM 135 mEq/L (136-147)
[2017-09-28 07:47] LABS: BACTERIA NONE SEEN /HPF; EPITHELIAL CELLS RARE /HPF; MUCUS 2+ /LPF; RED BLOOD CELLS 0-5 /HPF (0-5); UCUL ADDED? NO; WHITE BLOOD CELLS 0-5 /HPF (0-5)
[2017-09-28 07:49] LABS: GLUCOSE 109 mg/dL (70-99); TOTAL PROTEIN 7.8 g/dL (6.4-8.3)
[2017-09-28 07:51] LABS: TOTAL BILIRUBIN 0.2 mg/dL (0.0-1.0)
[2017-09-28 07:52] LABS: ALKALINE PHOSPHATASE 69 IU/L (3-129); CREATININE 0.8 mg/dL (0.6-1.3); GFR ESTIMATE (CALCULATED) > 59 mL/min/
[2017-09-28 07:54] LABS: UREA NITROGEN (BUN) 8 mg/dL (9-23)
[2017-09-28 07:55] LABS: ALT (GPT) 15 IU/L (3-49)
[2017-09-28 07:56] LABS: LIPASE 49 U/L (1.0-51.0)
[2017-09-28 08:02] LABS: QUANTITATIVE HCG < 4.0 MIU/ML
[2017-09-28 08:15] LABS: AST (GOT) 40 IU/L (2-34)
[2017-09-28] MEDS ORDERED: ZOFRAN ODT4 MG PO (09:43)
[2017-09-28] MEDS ORDERED: BENTYL20 MG PO (09:43)
[2017-09-28 10:18] VITALS: BP 152/75
[2017-09-29] MEDS ORDERED: PERCOCET 5/31 TABLET PO (09:20)
== END 2017-09-28 10:19 | disposition home or self-care (01) ==
LOC: EME 06:45
DX: G89.29 Other chronic pain (principal); R10.11 Right upper quadrant pain; R11.0 Nausea; M54.9 Dorsalgia, unspecified; Z90.49 Acquired absence of other specified parts of digestive tract; Z87.442 Personal history of urinary calculi; F17.200 Nicotine dependence, unspecified, uncomplicated; Z71.6 Tobacco abuse counseling
CPT/HCPCS: 76705; 80053; 81003; 83690; 84702; 85027; 99281; 99284; J3010

== ENCOUNTER 2017-09-29 05:31 | Emergency (ER) | payer OTHER ==
[~2017-09-29] VITALS: Ht 165.1 cm; Wt 131.8 kg
[2017-09-29 06:03] LABS: HEMATOCRIT 44.5 % (36.0-46.0); HEMOGLOBIN 15.1 G/DL (11.9-15.5); MCH 30.2 PG (29.0-34.0); MCHC 33.9 G/DL (30.0-36.0); PLATELET COUNT 259 K/uL (156-360); RBC DIS.WIDTH-CV 12.6 % (11.8-14.6); RBC DIS.WIDTH-SD 41.1 % (39-53)
[2017-09-29 06:16] LABS: ALBUMIN 3.5 g/dL (3.2-4.8); CHLORIDE 102 mEq/L (99-109); POTASSIUM 3.8 mEq/L (3.7-5.4); SODIUM 135 mEq/L (136-147)
[2017-09-29 06:18] LABS: GLUCOSE 103 mg/dL (70-99); TOTAL PROTEIN 7.4 g/dL (6.4-8.3)
[2017-09-29 06:20] LABS: TOTAL BILIRUBIN 0.2 mg/dL (0.0-1.0)
[2017-09-29 06:22] LABS: ALKALINE PHOSPHATASE 73 IU/L (3-129); CREATININE 0.8 mg/dL (0.6-1.3); GFR ESTIMATE (CALCULATED) > 59 mL/min/
[2017-09-29 06:23] LABS: UREA NITROGEN (BUN) 13 mg/dL (9-23)
[2017-09-29 06:25] LABS: ALT (GPT) 14 IU/L (3-49)
[2017-09-29 06:30] LABS: QUANTITATIVE HCG < 4.0 MIU/ML
[2017-09-29 06:32] LABS: AST (GOT) 20 IU/L (2-34)
[2017-09-29 09:10] LABS: APPEARANCE CLEAR ((CLEAR)); BILIRUBIN NEGATIVE; BLOOD NEGATIVE; COLOR YELLOW ((YELLOW)); GLUCOSE (STRIP) NEGATIVE; KETONES NEGATIVE; LEUKOCYTES NEGATIVE; NITRITE NEGATIVE; PROTEIN (STRIP) 30; SPECIFIC GRAVITY 1.031 (1.000-1.030); UCUL ADDED? NO
[2017-09-29] MEDS ORDERED: PERCOCET 5/31 TABLET PO (09:20)
[2017-09-29 10:05] VITALS: BP 105/79
== END 2017-09-29 10:07 | disposition home or self-care (01) ==
LOC: EME 05:31
DX: R10.11 Right upper quadrant pain (principal); D72.829 Elevated white blood cell count, unspecified; F17.200 Nicotine dependence, unspecified, uncomplicated; Z90.49 Acquired absence of other specified parts of digestive tract; J45.909 Unspecified asthma, uncomplicated; M79.7 Fibromyalgia; Z87.442 Personal history of urinary calculi; Z88.0 Allergy status to penicillin; Z88.5 Allergy status to narcotic agent; Z88.6 Allergy status to analgesic agent; Z91.010 Allergy to peanuts; Z91.030 Bee allergy status
CPT/HCPCS: 74176; 80053; 81003; 84702; 85027; 99281; 99285; J2270; J2405; J7030

== ENCOUNTER 2017-11-26 02:11 | Emergency (ER) | payer OTHER ==
[~2017-11-26] VITALS: Ht 177.8 cm; Wt 130.3 kg
[2017-11-26 02:46] LABS: HEMATOCRIT 43.7 % (36.0-46.0); HEMOGLOBIN 14.8 G/DL (11.9-15.5); MCH 29.8 PG (29.0-34.0); MCHC 33.9 G/DL (30.0-36.0); MCV 88.1 FL (83-99); PLATELET COUNT 260 K/uL (156-360); RBC DIS.WIDTH-CV 14.3 % (11.8-14.6); RBC DIS.WIDTH-SD 45.7 % (39-53); RED BLOOD COUNT 4.96 M/uL (3.80-5.20); WHITE BLOOD COUNT 16.3 K/uL (4.1-10.2)
[2017-11-26 02:57] LABS: ALBUMIN 3.6 g/dL (3.2-4.8); CHLORIDE 103 mEq/L (99-109); POTASSIUM 3.6 mEq/L (3.7-5.4); SODIUM 138 mEq/L (136-147)
[2017-11-26 03:00] LABS: GLUCOSE 116 mg/dL (70-99); TOTAL PROTEIN 7.1 g/dL (6.4-8.3)
[2017-11-26 03:02] LABS: TOTAL BILIRUBIN 0.4 mg/dL (0.0-1.0)
[2017-11-26 03:03] LABS: ALKALINE PHOSPHATASE 78 IU/L (3-129); CREATININE 0.7 mg/dL (0.6-1.3); GFR ESTIMATE (CALCULATED) > 59 mL/min/
[2017-11-26 03:04] LABS: UREA NITROGEN (BUN) 9 mg/dL (9-23)
[2017-11-26 03:05] LABS: AST (GOT) 17 IU/L (2-34)
[2017-11-26 03:06] LABS: ALT (GPT) 13 IU/L (3-49)
[2017-11-26 03:07] LABS: LIPASE 41 U/L (1.0-51.0)
[2017-11-26 03:12] LABS: QUANTITATIVE HCG < 4.0 MIU/ML
[2017-11-26 05:17] LABS: APPEARANCE SL.HAZY ((CLEAR)); BILIRUBIN NEGATIVE; BLOOD NEGATIVE; COLOR YELLOW ((YELLOW)); GLUCOSE (STRIP) NEGATIVE; KETONES NEGATIVE; LEUKOCYTES NEGATIVE; NITRITE NEGATIVE; PROTEIN (STRIP) 100; SPECIFIC GRAVITY 1.028 (1.000-1.030); UROBILINOGEN 0.2 MG/DL (0.2-1.0)
[2017-11-26 05:19] LABS: BACTERIA NONE SEEN /HPF; EPITHELIAL CELLS 1+ /HPF; MUCUS TRACE /LPF; RED BLOOD CELLS 0-5 /HPF (0-5); UCUL ADDED? NO; WHITE BLOOD CELLS 0-5 /HPF (0-5)
[2017-11-26] MEDS ORDERED: ZOFRAN4 MG PO (09:35)
[2017-11-26] MEDS ORDERED: PERCOCET 5/31 TABLET PO (09:35)
[2017-11-26 09:40] VITALS: BP 126/68
== END 2017-11-26 09:41 | disposition home or self-care (01) ==
LOC: EME 02:11
DX: R10.30 Lower abdominal pain, unspecified (principal); R11.2 Nausea with vomiting, unspecified; N83.201 Unspecified ovarian cyst, right side; Z87.442 Personal history of urinary calculi; Z90.49 Acquired absence of other specified parts of digestive tract; F17.200 Nicotine dependence, unspecified, uncomplicated; M79.7 Fibromyalgia; J45.909 Unspecified asthma, uncomplicated; F32.9 Major depressive disorder, single episode, unspecified; R56.9 Unspecified convulsions; Z88.5 Allergy status to narcotic agent; Z88.0 Allergy status to penicillin
CPT/HCPCS: 74177; 80053; 81003; 83690; 84702; 85027; 87493; 99281; 99284; J2270; J2405; J7030

== ENCOUNTER 2017-12-06 18:27 | Emergency (ER) | payer OTHER ==
[~2017-12-06] VITALS: Ht 177.8 cm; Wt 129.0 kg
[~2017-12-06 18:27] MED LIST changes: +ZOFRAN4 MG PO
[2017-12-06 19:07] LABS: BASOPHIL (%) 0.5 % (0-1); BASOPHIL COUNT 0.1 K/uL (0-0.1); EOSINOPHIL (%) 1.3 % (0-5); EOSINOPHIL COUNT 0.2 K/uL (0-0.3); HEMATOCRIT 46.8 % (36.0-46.0); HEMOGLOBIN 15.7 G/DL (11.9-15.5); IMMATURE GRANULOCYTE (%) 0.5 % (0.0-0.7); LYMPHOCYTE (%) 38.1 % (15-42); LYMPHOCYTE COUNT 4.6 K/uL (1.0-2.8); MCH 29.6 PG (29.0-34.0); MCHC 33.5 G/DL (30.0-36.0); MCV 88.3 FL (83-99); MONOCYTE (%) 11.5 % (3-12); MONOCYTE COUNT 1.4 K/uL (0-0.8); NEUTROPHIL (%) 48.1 % (45-76); NEUTROPHIL COUNT 5.8 K/uL (1.8-6.4); PLATELET COUNT 309 K/uL (156-360); RBC DIS.WIDTH-CV 14.3 % (11.8-14.6); RBC DIS.WIDTH-SD 45.4 % (39-53)
[2017-12-06 19:15] LABS: ALBUMIN 3.9 g/dL (3.2-4.8); CHLORIDE 107 mEq/L (99-109); POTASSIUM 4.1 mEq/L (3.7-5.4); SODIUM 140 mEq/L (136-147)
[2017-12-06 19:17] LABS: GLUCOSE 89 mg/dL (70-99)
[2017-12-06 19:19] LABS: TOTAL BILIRUBIN 0.4 mg/dL (0.0-1.0)
[2017-12-06 19:21] LABS: ALKALINE PHOSPHATASE 82 IU/L (3-129); CREATININE 0.7 mg/dL (0.6-1.3); GFR ESTIMATE (CALCULATED) > 59 mL/min/
[2017-12-06 19:22] LABS: UREA NITROGEN (BUN) 14 mg/dL (9-23)
[2017-12-06 19:23] LABS: AST (GOT) 30 IU/L (2-34)
[2017-12-06 19:24] LABS: ALT (GPT) 14 IU/L (3-49); LIPASE 47 U/L (1.0-51.0)
[2017-12-06 19:34] LABS: QUANTITATIVE HCG < 4.0 MIU/ML
[2017-12-06 20:03] LABS: APPEARANCE SL.HAZY ((CLEAR)); BILIRUBIN NEGATIVE; BLOOD MODERATE; COLOR YELLOW ((YELLOW)); GLUCOSE (STRIP) NEGATIVE; KETONES NEGATIVE; LEUKOCYTES NEGATIVE; NITRITE NEGATIVE; PROTEIN (STRIP) 100; SPECIFIC GRAVITY 1.034 (1.000-1.030)
[2017-12-06 20:21] LABS: BACTERIA RARE /HPF; EPITHELIAL CELLS 1+ /HPF; MUCUS TRACE /LPF; RED BLOOD CELLS 0-5 /HPF (0-5); WHITE BLOOD CELLS 0-5 /HPF (0-5)
[2017-12-06] MEDS ORDERED: PERCOCET 5/31 TABLET PO (21:49)
[2017-12-06] MEDS ORDERED: ZOFRAN ODT4 MG PO (21:49)
[2017-12-06 22:02] VITALS: BP 149/95
== END 2017-12-06 22:06 | disposition home or self-care (01) ==
LOC: EME 18:27
PROVIDERS: Physician Assistant
DX: N83.201 Unspecified ovarian cyst, right side (principal); M79.7 Fibromyalgia; J45.909 Unspecified asthma, uncomplicated; F32.9 Major depressive disorder, single episode, unspecified; F31.9 Bipolar disorder, unspecified; F17.200 Nicotine dependence, unspecified, uncomplicated; Z87.442 Personal history of urinary calculi; Z90.49 Acquired absence of other specified parts of digestive tract; Z88.6 Allergy status to analgesic agent; Z88.5 Allergy status to narcotic agent; Z88.0 Allergy status to penicillin
CPT/HCPCS: 74177; 76856; 80053; 81003; 83690; 84702; 85025; 99281; 99285; J1885; J2270; J2405; J3010; J7030

== ENCOUNTER 2017-12-08 03:08 | Emergency (ER) | payer OTHER ==
[~2017-12-08] VITALS: Ht 177.8 cm; Wt 130.5 kg
[2017-12-08 04:05] LABS: BASOPHIL (%) 0.5 % (0-1); BASOPHIL COUNT 0.1 K/uL (0-0.1); EOSINOPHIL (%) 1.2 % (0-5); EOSINOPHIL COUNT 0.1 K/uL (0-0.3); HEMATOCRIT 45.4 % (36.0-46.0); HEMOGLOBIN 15.3 G/DL (11.9-15.5); IMMATURE GRANULOCYTE (%) 0.6 % (0.0-0.7); LYMPHOCYTE (%) 35.8 % (15-42); MCH 30.1 PG (29.0-34.0); MCHC 33.7 G/DL (30.0-36.0); MCV 89.4 FL (83-99); MONOCYTE (%) 9.9 % (3-12); MONOCYTE COUNT 1.1 K/uL (0-0.8); NEUTROPHIL COUNT 5.8 K/uL (1.8-6.4); PLATELET COUNT 287 K/uL (156-360); RBC DIS.WIDTH-CV 14.1 % (11.8-14.6); RBC DIS.WIDTH-SD 46.3 % (39-53); RED BLOOD COUNT 5.08 M/uL (3.80-5.20); WHITE BLOOD COUNT 11.2 K/uL (4.1-10.2)
[2017-12-08 05:03] LABS: CHLORIDE 107 mEq/L (99-109); SODIUM 140 mEq/L (136-147)
[2017-12-08 05:04] LABS: GLUCOSE 95 mg/dL (70-99)
[2017-12-08 05:08] LABS: CREATININE 0.7 mg/dL (0.6-1.3); GFR ESTIMATE (CALCULATED) > 59 mL/min/
[2017-12-08 05:09] LABS: UREA NITROGEN (BUN) 11 mg/dL (9-23)
[2017-12-08] MEDS ORDERED: PERCOCET 5/31 TABLET PO (05:42)
[2017-12-08 05:50] VITALS: BP 152/98
== END 2017-12-08 05:52 | disposition home or self-care (01) ==
LOC: EME 03:08
PROVIDERS: Emergency Medicine
DX: N83.209 Unspecified ovarian cyst, unspecified side (principal); R10.9 Unspecified abdominal pain; J45.909 Unspecified asthma, uncomplicated; M79.7 Fibromyalgia; F32.9 Major depressive disorder, single episode, unspecified; F31.9 Bipolar disorder, unspecified; F17.200 Nicotine dependence, unspecified, uncomplicated; Z87.442 Personal history of urinary calculi; Z90.49 Acquired absence of other specified parts of digestive tract; Z98.51 Tubal ligation status; Z88.6 Allergy status to analgesic agent; Z88.5 Allergy status to narcotic agent; Z88.0 Allergy status to penicillin; Z91.010 Allergy to peanuts; Z91.030 Bee allergy status
CPT/HCPCS: 80048; 85025; 99281; 99284; J1885; J2270; J3010

== ENCOUNTER 2018-02-13 20:21 | Emergency (ER) | payer OTHER ==
[~2018-02-13] VITALS: Ht 177.8 cm; Wt 127.2 kg
[2018-02-13 20:27] VITALS: BP 118/72
[2018-02-13] MEDS ORDERED: PERCOCET 5/31 TABLET PO (22:31)
== END 2018-02-13 22:52 | disposition home or self-care (01) ==
LOC: EXP 20:21 → EME 20:21 → EXP 22:52
DX: S50.02XA Contusion of left elbow, initial encounter (principal); S39.012A Strain of muscle, fascia and tendon of lower back, initial encounter; S90.32XA Contusion of left foot, initial encounter; W18.30XA Fall on same level, unspecified, initial encounter; W51.XXXA Accidental striking against or bumped into by another person, initial encounter; F31.9 Bipolar disorder, unspecified; Z98.2 Presence of cerebrospinal fluid drainage device; Z98.51 Tubal ligation status; Z88.6 Allergy status to analgesic agent; Z88.5 Allergy status to narcotic agent; Z91.010 Allergy to peanuts; Z88.0 Allergy status to penicillin; Z91.030 Bee allergy status; Z91.048 Other nonmedicinal substance allergy status; Z88.8 Allergy status to other drugs, medicaments and biological substances
CPT/HCPCS: 72100; 73080; 73630; 99281; 99284

== ENCOUNTER 2018-03-11 20:57 | Emergency (ER) | payer OTHER ==
[~2018-03-11] VITALS: Ht 175.3 cm; Wt 127.2 kg
[2018-03-11 21:32] LABS: HEMATOCRIT 39.9 % (36.0-46.0); HEMOGLOBIN 13.5 G/DL (11.9-15.5); MCH 29.7 PG (29.0-34.0); MCHC 33.8 G/DL (30.0-36.0); MCV 87.7 FL (83-99); PLATELET COUNT 264 K/uL (156-360); RBC DIS.WIDTH-CV 13.4 % (11.8-14.6); RBC DIS.WIDTH-SD 42.9 % (39-53); RED BLOOD COUNT 4.55 M/uL (3.80-5.20); WHITE BLOOD COUNT 16.5 K/uL (4.1-10.2)
[2018-03-11 21:41] LABS: ALBUMIN 3.3 g/dL (3.2-4.8); CHLORIDE 105 mEq/L (99-109); POTASSIUM 3.8 mEq/L (3.7-5.4); SODIUM 138 mEq/L (136-147)
[2018-03-11 21:43] LABS: GLUCOSE 118 mg/dL (70-99); TOTAL PROTEIN 7.9 g/dL (6.4-8.3)
[2018-03-11 21:45] LABS: TOTAL BILIRUBIN 0.5 mg/dL (0.0-1.0)
[2018-03-11 21:47] LABS: ALKALINE PHOSPHATASE 72 IU/L (3-129); CREATININE 0.7 mg/dL (0.6-1.3); GFR ESTIMATE (CALCULATED) > 59 mL/min/
[2018-03-11 21:48] LABS: UREA NITROGEN (BUN) 7 mg/dL (9-23)
[2018-03-11 21:49] LABS: AST (GOT) 19 IU/L (2-34)
[2018-03-11 21:50] LABS: ALT (GPT) 18 IU/L (3-49)
[2018-03-12] MEDS ORDERED: CLEOCIN300 MG PO (00:06)
[2018-03-12] MEDS ORDERED: ULTRAM50 MG PO (00:07)
[2018-03-12 00:24] VITALS: BP 123/66
[2018-03-12] MEDS ORDERED: PERCOCET 5/31 TABLET PO (00:25)
== END 2018-03-12 00:24 | disposition left against medical advice (07) ==
LOC: EME 20:57
DX: L03.116 Cellulitis of left lower limb (principal); J45.909 Unspecified asthma, uncomplicated; F32.9 Major depressive disorder, single episode, unspecified; M79.7 Fibromyalgia; Z86.69 Personal history of other diseases of the nervous system and sense organs; Z88.5 Allergy status to narcotic agent; Z88.0 Allergy status to penicillin; F17.200 Nicotine dependence, unspecified, uncomplicated; Z88.6 Allergy status to analgesic agent
CPT/HCPCS: 73630; 80053; 85027; 99281; 99285; J2405

== ENCOUNTER 2018-05-20 09:45 | Emergency (ER) | payer OTHER ==
[~2018-05-20] VITALS: Ht 175.3 cm; Wt 126.6 kg
[~2018-05-20 09:45] MED LIST changes: +ULTRAM50 MG PO
[2018-05-20 12:22] VITALS: BP 132/82
== END 2018-05-20 12:24 | disposition home or self-care (01) ==
LOC: EME 09:45
DX: R51 Headache (principal); R11.2 Nausea with vomiting, unspecified; Z90.49 Acquired absence of other specified parts of digestive tract; Z87.442 Personal history of urinary calculi; Z98.51 Tubal ligation status; Z88.5 Allergy status to narcotic agent; F17.200 Nicotine dependence, unspecified, uncomplicated
CPT/HCPCS: 99281; 99285; J0780; J1100; J1200; J1885; J2270; J7030